=== PATIENT | female | born 1960 | race Caucasian/White ===

== ENCOUNTER 2023-06-03 20:48 | Outpatient (REF) | payer MEDICARE, MEDICAID, SELFPAY ==
[2023-06-03 21:17] LABS: Hematocrit 22.5 % (36.0-48.0); Hemoglobin 6.9 g/dL (12.0-16.0)
== END 2023-06-03 20:49 | disposition home or self-care (01) ==
LOC: LAB 20:48
DX: D64.9 Anemia, unspecified (principal); R79.89 Other specified abnormal findings of blood chemistry
CPT/HCPCS: 36415; 85014; 85018

== ENCOUNTER 2023-07-23 10:40 | Emergency (ER) | payer MEDICARE, MEDICAID, SELFPAY ==
[2023-07-23] VITALS (11 sets, daily range): BP systolic 119–147; BP diastolic 49–79; PULSE 34–92; RESP 4–18; TEMP 36.5; O2SAT 84–100; BMI 25.7
--- NOTE | 2023-07-23 10:55 | ECG_ITS ---
[facility] Test Date: 2023-07-23 Pat Name: EBENEZER KINGSLEY Department: Room: - Gender: Female Hospice Chaplain: : 1960 Requested By: [id number] Order Number: [id number] Reading MD: JEN VU Measurements Intervals [place] Rate: 76 P: 57 NH: 230 QRS: 101 QRSD: 110 T: -30 QT: 464 QTc: 495 Interpretive Statements 1100 Sinus rhythm 1574 with frequent ventricular premature complexes 2231 First degree AV block 2540 Incomplete left bundle branch block 7100 Abnormal right axis deviation 7500 Abnormal QRS-T angle 8304 Long QTc interval 9150 abnormal ECG No previous ECG available for comparison Electronically Signed On 07-24-2023 7:18:16 EST by JEN VU
--- NOTE | 2023-07-23 10:59 | ED.GENADUL1 ---
HPI - General Adult General Chief complaint: Recheck/Abnormal Lab/Rx Stated complaint: RECHECK LAB VALUES Time Seen by Provider: 07/23/23 10:43 History of Present Illness HPI narrative: 62-year-old female presents to be evaluated. She was sent here from the urology office for her 1st visit there. They felt that her heart rate was low and they sent her here for evaluation. She doesn't seem to have any complaints. She is not dizzy and doesn't have chest pain or shortness of breath or abdominal pain. She is a poor historian. Related Data Allergies Allergy/AdvReac Type Severity Reaction Status Date / Time naproxen Allergy Unknown Verified 07/23/23 11:16 Review of Systems ROS Narrative A ten point review of systems is negative except as noted above. Exam Narrative Exam Narrative: Nurses note and vital signs reviewed and patient is not hypoxic. General: The patient appears in no apparent distress. Patient is resting comfortably on cart. her speech is difficult to understand. Skin: Warm, dry, no pallor noted. There is no rash noted. Head: Normocephalic, atraumatic Eye: Normal conjunctiva, no drainage Ears, Nose, Mouth, and Throat: oral mucosa is somewhat dry. Nares patent. Cardiovascular: Regular Rate and Rhythm Respiratory: Patient is in no distress, no accessory muscle use, lungs are clear to auscultation, no wheezing, rales or rhonchi Back: non-tender GI: soft and nontender Musculoskeletal: The patient has no evidence of calf tenderness, no pitting edema, symmetrical pulses noted bilaterally Neurological: awake and alert. She can tell me her name and where she is Psychiatric: Cooperative Constitutional Vital Signs, click to edit/add: Last Vital Signs Temp 97.7 F 07/23/23 10:45 Pulse 48 L 07/23/23 12:38 Resp 18 07/23/23 12:38 BP 120/49 07/23/23 12:38 Pulse Ox 97 07/23/23 12:38 O2 Del Method Room Air 07/23/23 11:21 Course Vital Signs Vital signs: Vital Signs Temperature 97.7 F 07/23/23 10:45 Pulse Rate 56 L 07/23/23 10:45 Respiratory Rate 18 07/23/23 10:45 Blood Pressure 124/67 07/23/23 10:45 Pulse Oximetry 94 L 07/23/23 10:45 Oxygen Delivery Method Room Air 07/23/23 10:45 Temperature 97.7 F 07/23/23 10:45 Pulse Rate 48 L 07/23/23 12:38 Respiratory Rate 18 07/23/23 12:38 Blood Pressure 120/49 07/23/23 12:38 Pulse Oximetry 97 07/23/23 12:38 Oxygen Delivery Method Room Air 07/23/23 11:21 Medical Decision Making MDM Narrative Medical decision making narrative: the patient is at her neurologic baseline and she is not hypotensive. Her heart rate is not significantly bradycardic and she doesn't require any further workup. Differential Diagnosis Differential Diagnosis: bradycardia, anemia, acute kidney injury Lab Data Lab results reviewed: Yes I reviewed the patient's lab results Labs: Lab Results 07/23/23 07/23/23 Range/Units 11:10 11:35 WBC 12.5 H (4.0-11.0) 10^3/uL RBC 3.40 L (4.20-5.40) 10^6/uL Hgb 9.3 L (12.0-16.0) g/dL Hct 30.4 L (36.0-48.0) % MCV 89.4 (81.0-99.0) fL MCH 27.4 (26.7-34.0) pg MCHC 30.6 (29.9-35.2) g/dL RDW 16.8 H (11.0-15.0) % Plt Count 272 (150-450) 10^3/uL MPV 12.5 (9.5-13.5) fL Neut % (Auto) 72.3 (43.0-75.0) % Lymph % (Auto) 17.4 L (20.5-60.0) % [place] % (Auto) 6.8 (1.7-12.0) % Eos % (Auto) 2.3 (0.9-7.0) % Baso % (Auto) 0.7 (0.2-2.0) % Neut # (Auto) 9.1 H (1.4-6.5) 10^3/uL Lymph # (Auto) 2.2 (1.2-3.8) 10^3/uL [place] # (Auto) 0.9 H (0.3-0.8) 10^3/uL Eos # (Auto) 0.3 (0.0-0.7) 10^3/uL Baso # (Auto) 0.1 (0.0-0.1) 10^3/uL Abs Immat Gran (auto) 0.06 H (0.00-0.03) 10^3/uL Imm/Tot Granulo (auto) 0.5 (0.0-0.5) % Sodium 139 (136-145) mmol/L Potassium 4.6 (3.5-5.1) mmol/L Chloride 101 (98-107) mmol/L Carbon Dioxide 27.6 (21.0-32.0) mmol/L Anion Gap 15.0 BUN 18.0 (7.0-18.0) mg/dL Creatinine 0.93 (0.55-1.02) mg/dL Est GFR ( Amer) >60 (>=60) Est GFR (Non-Af Amer) >60 (>=60) BUN/Creatinine Ratio 19.4 Glucose 178 H (74-106) mg/dL Calcium 9.0 (8.5-10.1) mg/dL Urine Color Lt. yellow (YELLOW) Urine Clarity Clear (CLEAR) Urine pH 6.0 (5.0-9.0) Ur Specific [place] 1.015 (1.005-1.025) Urine Protein 30 A (NEG/TRACE) mg/dL Urine Glucose (UA) Negative (NEGATIVE) mg/dL Urine Ketones Negative (NEGATIVE) mg/dL Urine Occult Blood Negative (NEGATIVE) Urine Nitrite Negative (NEGATIVE) Urine Bilirubin Negative (NEGATIVE) Urine Urobilinogen 0.2 (0.2-1.0) EU/dL Ur Leukocyte Esterase Negative (NEGATIVE) Urine RBC None seen (0-2) #/HPF Urine WBC None seen (NONE SEEN) #/HPF Ur Squamous Epith Cells Few A (NONE/RARE) #/LPF Urine Crystals None seen (None Seen) #/HPF Urine Bacteria Small A (NONE SEEN) #/HPF Urine Casts Seen A (NONE SEEN) #/LPF Hyaline Casts Rare Urine Mucus None seen (NONE SEEN) ECG Data Attestation: I personally reviewed and interpreted this ECG as follows: (EKG on my interpretation shows sinus rhythm with PVCs and a rate of 76.) Discharge Plan Discharge Chief Complaint: Recheck/Abnormal Lab/Rx Clinical Impression: Bradycardia Patient Disposition: Home, Self-Care Time of Disposition Decision: 13:25 Condition: Good Mode of Transportation: Private Vehicle Instructions: Bradycardia (ED) Stand Alone Forms: Portal Instructions Referrals: Physician,Non-Staff, MD [Primary Care Provider] - 1 week
[2023-07-23 11:23] LABS: Basophils Absolute Auto 0.1 10^3/uL (0.0-0.1); Basophils Percent Auto 0.7 % (0.2-2.0); Eosinophils Absolute Auto 0.3 10^3/uL (0.0-0.7); Eosinophils Percent Auto 2.3 % (0.9-7.0); Hematocrit 30.4 % (36.0-48.0); Hemoglobin 9.3 g/dL (12.0-16.0); Immature Granulocytes Abs Auto 0.06 10^3/uL (0.00-0.03); Immature Granulocytes Pct Auto 0.5 % (0.0-0.5); Lymphocytes Absolute Auto 2.2 10^3/uL (1.2-3.8); Lymphocytes Percent Auto 17.4 % (20.5-60.0); Mean Corpuscular HGB Conc 30.6 g/dL (29.9-35.2); Mean Corpuscular Hemoglobin 27.4 pg (26.7-34.0); Mean Corpuscular Volume 89.4 fL (81.0-99.0); Mean Platelet Volume 12.5 fL (9.5-13.5); Monocytes Absolute Auto 0.9 10^3/uL (0.3-0.8); Monocytes Percent Auto 6.8 % (1.7-12.0); Neutrophils Absolute Auto 9.1 10^3/uL (1.4-6.5); Neutrophils Percent Auto 72.3 % (43.0-75.0); Platelet Count 272 10^3/uL (150-450); Red Cell Distribution Width 16.8 % (11.0-15.0); White Blood Count 12.5 10^3/uL (4.0-11.0)
[2023-07-23 11:30] LABS: BUN Creatinine Ratio 19.4; Carbon Dioxide 27.6 mmol/L (21.0-32.0); Chloride 101 mmol/L (98-107); Estimated GFR (African America >60 (>=60); Estimated GFR (Non-African Ame >60 (>=60); Glucose 178 mg/dL (74-106); Potassium 4.6 mmol/L (3.5-5.1); Sodium 139 mmol/L (136-145)
[2023-07-23 11:53] LABS: Bilirubin Urine NEGATIVE (NEGATIVE); Blood Urine NEGATIVE (NEGATIVE); Clarity Urine CLEAR (CLEAR); Color Urine LT. YELLOW (YELLOW); Glucose Urine UA NEGATIVE (NEGATIVE); Ketones Urine NEGATIVE (NEGATIVE); Leukocyte Esterase Urine NEGATIVE (NEGATIVE); Nitrite Urine NEGATIVE (NEGATIVE); Protein Urine 30 mg/dL (NEG/TRACE); Specific Gravity Urine 1.015 (1.005-1.025); Urobilinogen Urine 0.2 EU/dL (0.2-1.0)
[2023-07-23 11:59] LABS: Bacteria Urine SMALL #/HPF (NONE SEEN); Cast Seen? SEEN #/LPF (NONE SEEN); Crystals Seen? None Seen #/HPF (None Seen); Mucus Urine NONE SEEN (NONE SEEN); RBC Urine NONE SEEN #/HPF (0-2); Squamous Epithelial Cell Urine FEW #/LPF (NONE/RARE); WBC Urine NONE SEEN #/HPF (NONE SEEN)
[2023-07-23 12:00] LABS: Hyaline Casts Urine RARE
--- NOTE | 2023-07-23 14:34 | PC.NURSE ---
Call placed to Gregory Moralez to give report; unable to give report to nurse as two calls have been made and been on hold for several minutes, did speak with business applications analyst who is working on transport.
== END 2023-07-23 15:15 | disposition home or self-care (01) ==
PROVIDERS: Emergency Provider Emergency Medicine
DX: R00.1 Bradycardia, unspecified (principal)
CPT/HCPCS: 36415; 80048; 81001; 85025; 93005; 99285